=== PATIENT | female | born 2000 | race Caucasian/White ===

== ENCOUNTER 2022-03-12 20:37 | Emergency (ER) | payer OTHER ==
[2022-03-12 21:06] LABS: Urine Blood 2+ (Negative); Urine Glucose Negative (Negative); Urine Protein 3+ (Negative); Urine Specific Gravity 1.025 (1.005-1.030)
[2022-03-12 21:20] LABS: Urine Specific Gravity/Preg 1.025 (1.005-1.030)
[2022-03-12 21:20] LABS: Urine Bacteria 20-50 /HPF (<20); Urine Mucus 2+ /HPF (None Seen); Urine WBC Clump Occasional /HPF (None Seen)
[2022-03-12 21:42] LABS: SARS-COV-2 RT PCR NEGATIVE (NEGATIVE)
[2022-03-12] MEDS ORDERED: NA CHLORIDE 0.9% 500 ML ONE (21:53)
[2022-03-12] MEDS ORDERED: IBUPROFEN 400 MG TAB ONE (21:53)
[2022-03-12] MEDS ORDERED: NA CHLORIDE 0.9% 1,000 ML ONE (21:53)
[2022-03-12 21:56] LABS: Absolute Lymphocytes (CBC) 0.6 K/uL (0.7-4.9); Hematocrit 39.2 % (36.0-45.0); Lymphocytes % 7.4 % (15.3-44.8); MCV 87.6 fL (80-100); MPV 7.9 fL (7.6-11.3); RBC Red Blood Cell Count 4.47 M/uL (3.86-4.86)
[2022-03-12 22:13] LABS: Protime INR 1.21
[2022-03-12 22:17] LABS: Albumin 3.2 g/dL (3.4-5.0); Bilirubin Total 0.5 mg/dL (0.2-1.0); Potassium 3.3 mmol/L (3.5-5.1)
--- NOTE | 2022-03-12 22:26 | EDPHYS ---
Physician Documentation [facility] Name: Ana Garcia Age: 21 yrs Sex: Female : 2000 Arrival Date: 03/12/2022 Time: 20:41 Bed 23 Private MD: ED Physician Baldo Ta HPI: 03/12 22:15 This 21 yrs old Female presents to ER via Ambulatory with complaints of Back Pain, snw SHAKING, Pain With Urination. 22:15 The patient presents with pain that is acute, with no known mechanism of injury. The snw symptoms are located in the left mid back. Onset: The symptoms/episode began/occurred acutely. The pain radiates to the left scapular area, left subscapular area, left low back and left mid back. Associated signs and symptoms: Pertinent positives: nausea, vomiting. Severity of symptoms: At their worst the symptoms were moderate, severe. The patient has not experienced similar symptoms in the past. 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 - Social history:: Smoking status: Reported history of juuling and/or vaping. ROS: 21:00 Constitutional: Negative for fever, chills, and weight loss, Eyes: Negative for injury, snw pain, redness, and discharge, ENT: Negative for injury, pain, and discharge, Neck: Negative for injury, pain, and swelling, Cardiovascular: Negative for chest pain, palpitations, and edema, Respiratory: Negative for shortness of breath, cough, wheezing, and pleuritic chest pain, Abdomen/GI: Negative for abdominal pain, nausea, vomiting, diarrhea, and constipation. 21:00 : Negative for injury, bleeding, discharge, and swelling, MS/Extremity: Negative for injury and deformity, Skin: Negative for injury, rash, and discoloration, Neuro: Negative for headache, weakness, numbness, tingling, and seizure, Psych: Negative for depression, anxiety, suicide ideation, homicidal ideation, and hallucinations. 21:00 Back: Positive for flank pain, on the left. Exam: 20:58 Head/Face: Normocephalic, atraumatic. Eyes: Pupils equal round and reactive to light, snw extra-ocular motions intact. Lids and lashes normal. Conjunctiva and sclera are non-icteric and not injected. Cornea within normal limits. Periorbital areas with no swelling, redness, or edema. ENT: Nares patent. No nasal discharge, no septal abnormalities noted. Tympanic membranes are normal and external auditory canals are clear. Oropharynx with no redness, swelling, or masses, exudates, or evidence of obstruction, uvula midline. Mucous membranes moist. Neck: Trachea midline, no thyromegaly or masses palpated, and no cervical lymphadenopathy. Supple, full range of motion without nuchal rigidity, or vertebral point tenderness. No Meningismus. Chest/axilla: Normal chest wall appearance and motion. Nontender with no deformity. No lesions are appreciated. 20:58 Respiratory: Lungs have equal breath sounds bilaterally, clear to auscultation and percussion. No rales, rhonchi or wheezes noted. No increased work of breathing, no retractions or nasal flaring. Abdomen/GI: Soft, non-tender, with normal bowel sounds. No distension or tympany. No guarding or rebound. No evidence of tenderness throughout. 20:58 Skin: Warm, dry with normal turgor. Normal color with no rashes, no lesions, and no evidence of cellulitis. MS/ Extremity: Pulses equal, no cyanosis. Neurovascular intact. Full, normal range of motion. Neuro: Awake and alert, GCS 15, oriented to person, place, time, and situation. Cranial nerves II-XII grossly intact. Motor strength 5/5 in all extremities. Sensory grossly intact. Cerebellar exam normal. Normal gait. Psych: Awake, alert, with orientation to person, place and time. Behavior, mood, and affect are within normal limits. 20:58 Constitutional: The patient appears alert, awake, uncomfortable. 20:58 Cardiovascular: Rate: tachycardic, Rhythm: regular, Heart sounds: normal. 20:58 Back: pain, that is mild, of the left mid back, ROM is normal, CVA tenderness, that is mild, that is moderate, is noted on the left. Vital Signs: 20:50 BP 116 / 75; Pulse 135; Resp 20; Temp 100.4; Pulse Ox 100% ; Weight 54.43 kg; Height 5 kb3 ft. 3 in. (160.02 cm); Pain 7/10; 22:15 BP 105 / 79; Pulse 96; Resp 20; Pulse Ox 100% on R/A; eh3 20:50 Body Mass Index 21.26 (54.43 kg, 160.02 cm) kb3 MDM: 20:43 Patient medically screened. snw 21:24 Data reviewed: vital signs, nurses notes. Data interpreted: Pulse oximetry: on room air snw is 100 %. Interpretation: normal. ED course: A: UTI, B: HR 135 and T>100.4 (awaiting labs), C: awaiting labs. 03/12 20:52 Order name: Urine Culture snw 03/12 20:52 Order name: Urine Microscopic Only; Complete Time: 21:32 snw 03/12 20:52 Order name: COVID-19/FLU A+B/RSV; Complete Time: 21:49 snw 03/12 21:06 Order name: Urine Dipstick-Ancillary; Complete Time: 21:21 EDMS 03/12 21:12 Order name: Urine --Ancillary (enter results); Complete Time: 21:21 mw2 03/12 21:22 Order name: Blood Culture Adult (2) snw 03/12 21:22 Order name: CBC with Diff; Complete Time: 22:02 snw 03/12 21:22 Order name: CMP; Complete Time: 22:25 snw 03/12 21:22 Order name: Lactate w/ 2H reflex if indic.; Complete Time: 22:17 snw 03/12 21:22 Order name: Protime (+inr); Complete Time: 22:15 snw 03/12 21:22 Order name: Ptt, Activated; Complete Time: 22:15 snw 03/12 22:13 Order name: Glucose, Ancillary Testing; Complete Time: 22:15 EDMS 03/12 20:52 Order name: Urine Dipstick-Ancillary (obtain specimen); Complete Time: 21:10 snw 03/12 20:52 Order name: Urine Test (obtain specimen); Complete Time: 21:10 snw 03/12 21:22 Order name: EKG; Complete Time: :23 snw 03/12 21: Order name: Accucheck; Complete Time: : snw 03/12 21: Order name: Cardiac monitoring; Complete Time: 22:03 snw 03/12 21:22 Order name: EKG - Nurse/Tech; Complete Time: 21:49 snw 03/12 21: Order name: IV Saline Lock - Large Bore; Complete Time: 22: snw 03/12 21: Order name: Labs collected and sent; Complete Time: 22: snw 03/12 21: Order name: O2 Per Protocol; Complete Time: : snw 03/12 21: Order name: O2 Sat Monitoring; Complete Time: : snw 03/12 21: Order name: Vital Signs; Complete Time: :22 snw EC:35 Rate is 100 beats/min. Rhythm is regular. [place] interval is normal. QRS interval is snw normal. QT interval is normal. Clinical impression: NSR w/ Non-specific ST/T Changes. Administered Medications: 21:45 Drug: Motrin (ibuprofen) 800 mg Route: PO; eh3 22:55 Follow up: Response: Pain is decreased eh3 21:45 Drug: NS 0.9% (30 ml/kg) 30 ml/kg Route: IV; Rate: bolus; Site: right antecubital; eh3 23:20 Follow up: IV Status: Completed infusion; IV Intake: 1000ml eh3 23:04 Drug: fentaNYL (PF) 50 mcg Route: IVP; Site: right antecubital; eh3 23:20 Follow up: Response: Pain is decreased eh3 23:10 Drug: Rocephin (cefTRIAXone) 1 grams Route: IV; Rate: calculated rate; Site: right 3 antecubital; 23:20 Follow up: IV Status: Completed infusion; IV Intake: 20ml eh3 23:24 Follow up: Response: Medication administered at discharge. 3 Disposition: 22:39 Co-signature as Attending Physician, Baldo MATAMOROS was immediately available on-site ms3 in the Emergency Department for consultation in the care of the patient. Disposition Summary: 03/12/22 22:26 Discharge Ordered Location: Home snw Condition: Stable snw Diagnosis - Pyelonephritis acute snw Followup: snw - With: Private Physician - When: 2 - 3 days - Reason: Recheck today's complaints, Continuance of care, Re-evaluation by your physician Followup: snw - With: Emergency Department - When: As needed - Reason: Worsening of condition Discharge Instructions: - Discharge Summary Sheet snw - Fever, Adult snw - Pyelonephritis, Adult snw - Rehydration, Adult snw Forms: - Medication Reconciliation Form snw - Thank You Letter snw - Antibiotic Education snw - Prescription Opioid Use snw - School release form snw - Work release form eh3 Prescriptions: - Augmentin 875-125 mg Oral Tablet - take 1 tablet by ORAL route every 12 hours for 10 days; 20 tablet; Refills: 0, snw Product Selection Permitted - Macrobid 100 mg Oral Capsule - take 1 capsule by ORAL route every 12 hours for 10 days; 20 capsule; Refills: snw 0, Product Selection Permitted - Tramadol 50 mg Oral Tablet - take 1 tablet by ORAL route every 8 hours as needed; 12 tablet; Refills: 0, snw Product Selection Permitted - promethazine 25 mg Oral Tablet - take 1 tablet by ORAL route every 6 hours As needed; 20 tablet; Refills: 0, snw Product Selection Permitted Signatures: Dispatcher [employer] Isadora Rodriguez FNP-C PRODUCTION WELDING SUPERVISOR-Csnw Baldo Ta, DO ms3 Isabel Vincent, RN RN eh3 Giana Kim RN RN kb3
--- NOTE | 2022-03-12 22:26 | ER ---
Nurse's Notes [facility] Name: Ana Garcia Age: 21 yrs Sex: Female : 2000 Arrival Date: 03/12/2022 Time: 20:41 Bed 23 Private MD: Diagnosis: Pyelonephritis acute Presentation: 03/12 20:50 Chief complaint: Patient states: left flank pain, dysuria, foul odor to urine, and kb3 nausea x 4 days. Coronavirus screen: Vaccine status: Patient reports receiving the 2nd dose of the covid vaccine. Client denies travel out of the [place] in the last 14 days. Ebola Screen: Patient negative for fever greater than or equal to 101.5 degrees Fahrenheit, and additional compatible Ebola Virus Disease symptoms Patient denies exposure to infectious person. Patient denies travel to an Ebola-affected area in the 21 days before illness onset. Initial Sepsis Screen: Does the patient meet any 2 criteria? No. Patient's initial sepsis screen is negative. Does the patient have a suspected source of infection? No. Patient's initial sepsis screen is negative. Risk Assessment: Do you want to hurt yourself or someone else? Patient reports no desire to harm self or others. Onset of symptoms was March 08, 2022. 20:50 Method Of Arrival: Ambulatory kb3 20:50 Acuity: NOELLE 3 kb3 Triage Assessment: 20:51 General: Appears in no apparent distress. Behavior is calm, cooperative. Pain: kb3 Complains of pain in left low back Pain does not radiate. Pain currently is 7 out of 10 on a pain scale. Quality of pain is described as burning, sharp. 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 - Social history:: Smoking status: Reported history of juuling and/or vaping. Screenin:16 Abuse screen: Denies threats or abuse. Denies injuries from another. Nutritional eh3 screening: No deficits noted. Tuberculosis screening: No symptoms or risk factors identified. Fall Risk None identified. Assessment: 21:16 General: Appears in no apparent distress. uncomfortable, Behavior is calm, cooperative, eh3 appropriate for age. Pain: Complains of pain in left mid back and left low back Pain does not radiate. Pain currently is 5 out of 10 on a pain scale. Quality of pain is described as sharp, Pain began 2-3 days ago. Is continuous, Alleviated by nothing. Neuro: Level of Consciousness is awake, alert, obeys commands, Oriented to person, place, time, situation. Cardiovascular: Capillary refill < 3 seconds Patient's skin is warm and dry. Respiratory: Airway is patent Respiratory effort is even, unlabored, Respiratory pattern is regular, symmetrical. GI: Abdomen is round non-distended, Reports nausea. : Reports burning with urination, urgency, urinary frequency. EENT: No signs and/or symptoms were reported regarding the EENT system. Derm: No signs and/or symptoms reported regarding the dermatologic system. Musculoskeletal: No signs and/or symptoms reported regarding the musculoskeletal system. Circulation, motion, and sensation intact. Range of motion: intact in all extremities. 22:15 Reassessment: Patient appears in no apparent distress at this time. Patient and/or eh3 family updated on plan of care and expected duration. Pain level reassessed. Patient is alert, oriented x 3, equal unlabored respirations, skin warm/dry/pink. 22:30 Reassessment: Provider ordered NS bolus to be completed before discharge, 400mL eh3 remaining at this time. 22:40 Reassessment: 2 missed attempts to collect 2nd set of blood cultures: 23g to R hand, eh3 23g to LAC; tip intact, bleeding controlled, gauze and tape applied. Vital Signs: 20:50 BP 116 / 75; Pulse 135; Resp 20; Temp 100.4; Pulse Ox 100% ; Weight 54.43 kg; Height 5 kb3 ft. 3 in. (160.02 cm); Pain 7/10; 22:15 BP 105 / 79; Pulse 96; Resp 20; Pulse Ox 100% on R/A; eh3 20:50 Body Mass Index 21.26 (54.43 kg, 160.02 cm) kb3 ED Course: 20:41 Patient arrived in ED. dt4 20:42 Isadora Andrews, JUSTINA-C is [facility]. snw 20:42 Baldo Ta DO is Attending Physician. snw 20:51 Triage completed. kb3 20:51 Arm band placed on right wrist. kb3 20:52 COVID-19/FLU A+B/RSV Sent. kb3 21:10 Urine Culture Sent. kb3 21:10 Urine Microscopic Only Sent. kb3 21:15 Isabel Vincent, RN is Primary Nurse. eh3 21:16 Patient has correct armband on for positive identification. Bed in low position. Call eh3 light in reach. Side rails up X2. Adult w/ patient. Pulse ox on. NIBP on. Door closed. Noise minimized. Warm blanket given. 23:25 No provider procedures requiring assistance completed. IV discontinued, intact, eh3 bleeding controlled, No redness/swelling at site. Pressure dressing applied. Administered Medications: 21:45 Drug: Motrin (ibuprofen) 800 mg Route: PO; eh3 22:55 Follow up: Response: Pain is decreased eh3 21:45 Drug: NS 0.9% (30 ml/kg) 30 ml/kg Route: IV; Rate: bolus; Site: right antecubital; eh3 23:20 Follow up: IV Status: Completed infusion; IV Intake: 1000ml eh3 23:04 Drug: fentaNYL (PF) 50 mcg Route: IVP; Site: right antecubital; eh3 23:20 Follow up: Response: Pain is decreased eh3 23:10 Drug: Rocephin (cefTRIAXone) 1 grams Route: IV; Rate: calculated rate; Site: right eh3 antecubital; 23:20 Follow up: IV Status: Completed infusion; IV Intake: 20ml eh3 23:24 Follow up: Response: Medication administered at discharge. eh3 Medication: 23:25 VIS not applicable for this client. eh3 Intake: 23:20 IV: 20ml; Total: 20ml. eh3 23:20 IV: 1000ml; Total: 1020ml. eh3 Outcome: 22:26 Discharge ordered by . snw 23:23 Patient left the ED. eh3 23:25 Discharged to home ambulatory, with family. eh3 23:25 Condition: stable 23:25 Discharge instructions given to patient, family, Instructed on discharge instructions, follow up and referral plans. medication usage, Demonstrated understanding of instructions, follow-up care, medications, Prescriptions given X 4. Addendum: 03/16/2022 08:48 Addendum: Culture Results: Positive urine culture. No further action required. Bacteria i w sensitive to prescribed antibiotic. Signatures: Isadora Andrews, CARGOMAN-C CARGOMAN-Csnw Radha Bolden, RN RN iw Isabel Vincent RN RN eh3 Giana Kim RN RN kb3 Era Lemos dt4 Corrections: (The following items were deleted from the chart) 03/12 23:12 22:57 Reassessment: 2 missed attempts to collect 2nd set of blood cultures: 23g to R eh3 hand, 23g to LAC; tip intact, bleeding controlled, gauze and tape applied eh3 23:13 22:30 Reassessment: 2 missed attempts to collect 2nd set of blood cultures: 23g to R eh3 hand, 23g to LAC; tip intact, bleeding controlled, gauze and tape applied eh3
[2022-03-12] MEDS ORDERED: CEFTRIAXONE 1000 MG/VIAL ONE (22:37)
[2022-03-12] MEDS ORDERED: NA CHLORIDE 0.9% 50 ML IV ONE (22:37)
[2022-03-12] MEDS ORDERED: FENTANYL CITR 100 MCG/2 ML ONE (22:58)
[2022-03-12 23:56] VITALS: TEMP 100.4; O2SAT 100
[2022-03-12 23:57] VITALS: BP 105/79
--- NOTE | 2022-03-14 13:50 | EKG ---
Test Date: 2022-03-12 Test Time: 21:32:14 Dispute Resolution Analyst: ROBERTO MEASUREMENT RESULTS: Intervals: Rate: 100 HI: 138 QRSD: 70 QT: 354 QTc: 456 [place]: P: 74 HI: 138 QRS: 94 T: 62 INTERPRETIVE STATEMENTS: Normal sinus rhythm Rightward axis Borderline ECG No previous ECG available for comparison Electronically Signed On 03-14-22 13:47:21 MERCHANDISING ASSISTANT by Vincent Lemon
== END 2022-03-12 23:23 | disposition home or self-care (01) ==
LOC: ER 20:37
DX: N10 Acute pyelonephritis (principal); Z20.822 Contact with and (suspected) exposure to COVID-19
CPT/HCPCS: 96365; 93005; 87040 ×2; 87088; 85025; 87086; 36415; 81025; 85610; 82947; 83605; 85730; 87077; 87186; 80053; 0241U; 96375; 99284; 96366; J3010; J7040; J7030; 81003; 81015